=== PATIENT | male | born 1940 | race Caucasian/White ===

== ENCOUNTER 2016-11-24 07:40 | Day surgery (SDC) | payer OTHER, MEDICARE ==
[~2016-11-24] VITALS: Ht 167.6 cm; Wt 113.0 kg
[~2016-11-24 07:40] MED LIST: AMLODIPINE BESY10 MG PO; ASCORBIC ACID500 M3 PO; ASPIR 8181 M1 PO; ASPIRIN325 MG PO; CHOLESTEROL MED; DAILY VITAMIN1 EAC4 PO; FISH OIL 1,001000 M2 PO; FORTAMET500 MG PO; LOVASTATIN20 MG PO; PROPRANOLOL HCL40 MG PO; ZESTORETIC 20-1 EAC1 PO; ZESTRIL,PRINIVI10 MG PO
[2016-11-24 09:44] LABS: POINT-OF-CARE METER ID UU13113696
[2016-11-24 12:47] LABS: POINT-OF-CARE METER ID UU13113819
== END 2016-11-24 18:06 | disposition home or self-care (01) ==
LOC: CATH 07:40
PROVIDERS: Internal Medicine Cardiovascular Disease
DX: I25.10 Atherosclerotic heart disease of native coronary artery without angina pectoris (principal); I25.82 Chronic total occlusion of coronary artery; I49.3 Ventricular premature depolarization; I10 Essential (primary) hypertension; E11.9 Type 2 diabetes mellitus without complications; E66.9 Obesity, unspecified; Z68.41 Body mass index [BMI] 40.0-44.9, adult; E78.5 Hyperlipidemia, unspecified; R06.09 Other forms of dyspnea; Z82.49 Family history of ischemic heart disease and other diseases of the circulatory system; Z96.653 Presence of artificial knee joint, bilateral; Z79.82 Long term (current) use of aspirin; Z79.84 Long term (current) use of oral hypoglycemic drugs
CPT/HCPCS: 82948; C1769; C1887; J1644; J2250; J3010; J7050